=== PATIENT | female | born 1960 | race Caucasian/White ===

== ENCOUNTER 2017-03-02 22:21 | Inpatient (IN) | payer BC, MEDICAID ==
[~2017-03-02] VITALS: Ht 154.9 cm; Wt 88.1 kg
--- NOTE | 2017-03-02 22:43 | NUR ---
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 PT WENT TO BED #2 AND WAS CONNECTED TO THE MONITOR AND CONTINUOUS PULSE OX. DR. DURAND IS AT THE BEDSIDE. PT IS WOLOF SPEAKING WITH A BIT OF BERMUDIAN. PT'S SON IS AT THE BEDSIDE.
--- NOTE | 2017-03-02 22:53 | NUR ---
BLOOD WAS DRAWN AND EKG IS IN PROGRESS AT THE BEDSIDE.
[2017-03-02] MEDS ORDERED: NITROGLYCERIN 0.4 MG/TAB BOTTLE ONE (22:59)
[2017-03-02] MEDS ORDERED: NITROGLYCERIN PACKET 1 GM PACKET ONE (22:59)
[2017-03-02] MEDS ORDERED: ACETAMINOPHEN ES 500 MG TABLET ONE (22:59)
[2017-03-02] MEDS ORDERED: NITROGLYCERIN PACKET 1 GM PACKET TD ONE (23:00)
[2017-03-02] MEDS ORDERED: NITROGLYCERIN 0.4 MG/TAB BOTTLE SL ONE (23:00)
[2017-03-02] MEDS ORDERED: ACETAMINOPHEN ES 500 MG TABLET PO ONE (23:00)
[2017-03-02 23:02] LABS: BASOPHILS # (AUTO) 0.1 /CMM (0.0-0.2); BASOPHILS % (AUTO) 0.6 % (0.0-2.0); EOSINOPHILS # (AUTO) 0.2 /CMM (0.0-0.7); EOSINOPHILS % (AUTO) 2.1 % (0.0-6.0); HEMATOCRIT 37 % (33-45); LYMPHOCYTES # (AUTO) 3.3 /CMM (0.8-4.8); MEAN CORPUSCULAR HEMOGLOBIN 30 PG (26.0-33.0); MEAN CORPUSCULAR HGB CONC 35 g/dl (31.0-36.0); MEAN CORPUSCULAR VOLUME 87 fL (82-100); MONOCYTES # (AUTO) 0.6 /CMM (0.1-1.30); MONOCYTES % (AUTO) 6.8 % (2.0-12.0); NEUTROPHILS % (AUTO) 54.5 % (43.0-81.0); PLATELET COUNT (AUTO) 255 /CMM (150-450); RDW COEFFICIENT OF VARIATION 13.1 (11.5-15.0); RED BLOOD CELL COUNT(AUTO) 4.28 MIL/uL (4.0-5.2); WHITE BLOOD COUNT (AUTO) 9.1 K/uL (4.3-11.0)
[2017-03-02 23:18] LABS: CALCIUM, SERUM 9.5 mg/dL (8.5-10.1); CREATININE 0.9 mg/dL (0.6-1.3); D-DIMER 0.94 mg/L(FEU (0.17-0.50); INR 0.97 (0.87-1.13); POTASSIUM 3.5 mmol/L (3.5-5.1); PROTHROMBIN TIME 10.1 SECS (9.5-12.7)
[2017-03-02 23:43] LABS: ALBUMIN 3.7 g/dL (3.4-5.0); BILIRUBIN,TOTAL 0.3 mg/dL (0.2-1.0); TOTAL PROTEIN, SERUM 7.2 g/dL (6.4-8.2)
--- NOTE | 2017-03-02 23:52 | NUR ---
Calos HATHAWAY DNP IS AT THE BEDSIDE SPEAKING TO THE PT AND HER FAMILY.
[2017-03-02] MEDS ORDERED: IOHEXOL-350 100 ML VIAL IV ONE (23:56)
[2017-03-02] MEDS ORDERED: IV NS 0.9% 250 ML IV ONE (23:56)
[2017-03-02 23:57] LABS: TROPONIN I 0.028 ng/mL (0.00-0.056)
--- NOTE | 2017-03-02 23:57 | NUR ---
PT TO GO TO CTA.
[2017-03-03] MEDS ORDERED: AMLODIPINE PO (00:19)
[2017-03-03] MEDS ORDERED: METOPROLOL PO (00:19)
[2017-03-03] MEDS ORDERED: ASPI81TA2 PO (00:19)
--- NOTE | 2017-03-03 00:51 | NUR ---
PT LEFT FOR CTA VIA GURNEY
[2017-03-03] MEDS ORDERED: IV NS 0.9% 500 ML BAG IV ONE (01:00)
[2017-03-03] MEDS ORDERED: IOHEXOL-350 100 ML VIAL IV ONE (01:04)
[2017-03-03] MEDS ORDERED: IV NS 0.9% 250 ML IV ONE (01:06)
--- NOTE | 2017-03-03 01:13 | NUR ---
20G IV STARTED IN LAC. IV ON RFA IS LEAKING AND WAS REMOVED. AREA BENIGN AND NO S/S OF BLEEDING NOTED. AREA COVERED WITH 2X2'S.
--- NOTE | 2017-03-03 01:18 | NUR ---
PT RETURNED FROM CT. IVF STARTED.
[2017-03-03 02:30] VITALS: BP 103/58
--- NOTE | 2017-03-03 03:00 | NUR ---
RN OPENING NOTES RECEIVED PATIENT FROM ER IN STABLE CONDITION. GRENADIAN SPEAKING WITH A LIT BIT OF SAMI. SON PRESENT AT BEDSIDE. VS STABLE. NO C/O CHEST PAIN AT THIS TIME. RESPIRATIONS EVEN AND UNLABORED. IV ACCESS ON RIGHT FA PATENT AND INTACT. FLUSHING WELL. BS X4. TELE MONITOR IN PLACE. READING SINUS RHYTHM 77. WAITING FOR MD ORDER. BED IN LOW AND LOCKED POSITION. SIDE RAILSX2. CALL LIGHT WITHIN EASY REACH. CONTINUE TO MONITOR.
[2017-03-03 03:27] VITALS: BP 103/58
[2017-03-03 04:00] VITALS: BP 102/61
[2017-03-03] MEDS ORDERED: ZOLPIDEM TARTRATE 5 MG TABLET PO PRN (05:30)
[2017-03-03] MEDS ORDERED: MORPHINE SULFATE INJ 2 MG/ML DISP.SYRIN IV PRN (05:30)
[2017-03-03] MEDS ORDERED: Z GUARD REMEDY 2 OZ OINT TP PRN (05:30)
[2017-03-03] MEDS ORDERED: ACETAMINOPHEN 325 MG TABLET PO PRN (05:30)
[2017-03-03] MEDS ORDERED: ONDANSETRON HCL/PF 4 MG/2 ML VIAL IVP PRN (05:30)
[2017-03-03] MEDS ORDERED: ENOXAPARIN SODIUM 40 MG/0.4 ML DISP.SYRIN SQ SCH (05:30)
[2017-03-03] MEDS ORDERED: ENOXAPARIN SODIUM 40 MG/0.4 ML DISP.SYRIN SQ ONE (05:51)
[2017-03-03] MEDS ORDERED: NITROGLYCERIN PACKET 1 GM PACKET ONE (05:52)
[2017-03-03] MEDS: NITROGLYCERIN 30 GM TUBE TP SCH ×2 (06:00→12:00)
--- NOTE | 2017-03-03 06:01 | NUR ---
RN NOTES BP 102/61. NO NITRO OINTMENT ADMINISTERED. CONTINUE TO MONITOR.
[2017-03-03 07:09] LABS: BASOPHILS % (AUTO) 0.4 % (0.0-2.0); EOSINOPHILS # (AUTO) 0.1 /CMM (0.0-0.7); EOSINOPHILS % (AUTO) 1.8 % (0.0-6.0); HEMATOCRIT 37 % (33-45); HEMOGLOBIN 12.8 g/dL (11.5-14.8); LYMPHOCYTES # (AUTO) 2.9 /CMM (0.8-4.8); LYMPHOCYTES % (AUTO) 38.7 % (20.0-44.0); MEAN CORPUSCULAR HEMOGLOBIN 30 PG (26.0-33.0); MEAN CORPUSCULAR HGB CONC 34 g/dl (31.0-36.0); MEAN CORPUSCULAR VOLUME 88 fL (82-100); MONOCYTES # (AUTO) 0.6 /CMM (0.1-1.30); MONOCYTES % (AUTO) 7.3 % (2.0-12.0); NEUTROPHILS # (AUTO) 3.9 /CMM (1.8-8.9); NEUTROPHILS % (AUTO) 51.8 % (43.0-81.0); PLATELET COUNT (AUTO) 229 /CMM (150-450); RDW COEFFICIENT OF VARIATION 13.1 (11.5-15.0); RED BLOOD CELL COUNT(AUTO) 4.24 MIL/uL (4.0-5.2); WHITE BLOOD COUNT (AUTO) 7.6 K/uL (4.3-11.0)
[2017-03-03 07:17] LABS: CALCIUM, SERUM 8.7 mg/dL (8.5-10.1); CREATININE 0.7 mg/dL (0.6-1.3); PHOSPHORUS 4.1 mg/dL (2.5-4.9); POTASSIUM 3.9 mmol/L (3.5-5.1)
--- NOTE | 2017-03-03 07:25 | NUR ---
RN CLOSING NOTES PATIENT IS IN BED SLEEPING, EASILY AROUSABLE. ALERT AND ORIENTED X4. VS STABLE. NO C/O CHEST PAIN AT THIS TIME. RESPIRATIONS EVEN AND UNLABORED. IV ACCESS ON RIGHT FA PATENT AND INTACT. FLUSHING WELL. TELE MONITOR IN PLACE. READING SINUS RHYTHM 77. ALL MEDICATION GIVEN PER MD ORDER. BED IN LOW AND LOCKED POSITION. SIDE RAILSX2. CALL LIGHT WITHIN EASY REACH. WILL ENDORSE TO RN DAY SHIFT FOR CONTINUITY OF CARE.
[2017-03-03] MEDS ORDERED: MORPHINE SULFATE INJ 10 MG/ML DISP.SYRIN IV PRN (07:30)
--- NOTE | 2017-03-03 07:30 | NUR ---
PT RECEIVED RESTING COMFORTABLY IN BED WITH EYES CLOSED. NO S/S OR C/O PAIN OR DISTRESS NOTED. SIDE RAILS UP X2, CALL LIGHT LEFT WITHIN REACH. WILL CONTINUE PLAN OF CARE.
[2017-03-03 08:00] VITALS: BP 114/68
[2017-03-03] MEDS ORDERED: CLON0.1T PO (08:24)
[2017-03-03] MEDS ORDERED: CLON0.5T4 PO (08:24)
[2017-03-03] MEDS ORDERED: METO-304 PO (08:24)
[2017-03-03] MEDS ORDERED: PRAV10TA40 PO (08:24)
[2017-03-03] MEDS ORDERED: GABA-534 PO (08:24)
[2017-03-03] MEDS ORDERED: CHOL500052 PO (08:24)
[2017-03-03] MEDS ORDERED: SERT100T PO (08:24)
[2017-03-03] MEDS ORDERED: AMLO10TA2 PO (08:24)
[2017-03-03] MEDS ORDERED: ASPIRIN EC 81 MG TABLET.DR PO SCH (09:00)
[2017-03-03 12:06] LABS: THYROID STIMULATING HORMONE 2.428 uIU/mL (0.358-3.74)
[2017-03-03] MEDS ORDERED: AMLODIPINE BESYLATE 10 MG TABLET PO SCH (12:30)
[2017-03-03] MEDS ORDERED: SERTRALINE HCL 50 MG TABLET PO SCH (12:30)
[2017-03-03] MEDS ORDERED: METOPROLOL SUCCINATE 50 MG TAB.SR.24H PO SCH (12:30)
[2017-03-03] MEDS ORDERED: REGADENOSON 0.4 MG/5 ML DISP.SYRIN IVP ONE (12:30)
[2017-03-03] MEDS ORDERED: clonazePAM 0.5 MG TABLET PO PRN (12:30)
[2017-03-03] MEDS ORDERED: GABAPENTIN 300 MG CAPSULE PO SCH (13:00)
[2017-03-03 16:00] VITALS: BP 146/80
--- NOTE | 2017-03-03 18:16 | NUR ---
DISCHARGE INSTRUCTIONS GIVEN ORDERED. ENCOURAGED TO FOLLOW UP WITH PMD INSTRUCTED. ALL QUESTIONS AND CONCERNS ADDRESSED. PATIENT VERBALIZED UNDERSTANDING. MEDICATION RECONCILIATION FORM COMPLETED AND COPY GIVEN TO PATIENT. IV REMOVED WITH CATHETER INTACT, PRESSURE DRESSING APPLIED. TELE UNIT RETURNED TO STATION. PATIENT TAKEN TO VEHICLE WITH ALL PERSONAL BELONGINGS, ACCOMPANIED BY STAFF AND FAMILY MEMBER. NO DISTRESS NOTED AT TIME OF DEPARTURE.
[2017-03-03] MEDS ORDERED: Medication Not On Formulary EA (Pravastatin Sodium 10 MG) PO SCH (22:00)
[2017-03-03] MEDS ORDERED: ATORVASTATIN 10 MG TABLET PO SCH (22:00)
[2017-03-04] MEDS ORDERED: ASPIRIN 81 MG TAB.CHEW PO SCH (09:00)
[2017-03-04] MEDS ORDERED: ENOXAPARIN SODIUM 40 MG/0.4 ML DISP.SYRIN SQ SCH (09:00)
[2017-03-07] MEDS ORDERED: ERGOCALCIFEROL (VITAMIN D 2) 50,000 UNIT CAPSULE PO SCH (07:30)
== END 2017-03-03 18:30 | disposition home or self-care (01) | DRG 203 ==
LOC: ER 22:22 → TELE 03-03 00:47 → MED 03-03 11:37
PROVIDERS: ADMIT Nurse Practitioner Acute Care; ATTEND Nurse Practitioner Acute Care
DX: M94.0 Chondrocostal junction syndrome [Tietze] (principal); I10 Essential (primary) hypertension; I25.10 Atherosclerotic heart disease of native coronary artery without angina pectoris; E78.5 Hyperlipidemia, unspecified; F41.9 Anxiety disorder, unspecified; F32.9 Major depressive disorder, single episode, unspecified; Z95.2 Presence of prosthetic heart valve; E66.9 Obesity, unspecified; Z68.36 Body mass index [BMI] 36.0-36.9, adult; R93.8 Abnormal findings on diagnostic imaging of other specified body structures; Z98.890 Other specified postprocedural states
CPT/HCPCS: 36415; 71010-TC; 80048-TC; 80061-TC; 80076-TC; 82306; 83735-TC; 83880; 84100-TC; 84443-TC; 84484-TC; 84702-TC; 84703-TC; 85025-TC; 85378-TC; 85730-TC; 87081-TC; A4606; A9502; J1650; J2785; J7040; J7050; Q9967; Z7610